=== PATIENT | male | born 1965 | race Two or more races ===

== ENCOUNTER 2023-07-17 18:37 | Emergency (ER) | payer MEDICAID, OTHER ==
[~2023-07-17] VITALS: Ht 165.1 cm; Wt 65.2 kg
[2023-07-17] MEDS ORDERED: NAP500T PO (20:46)
[2023-07-17] MEDS ORDERED: CIPR-173 PO (20:46)
[2023-07-18 00:40] VITALS: BP 142/77; PULSE 77; RESP 13; TEMP 97.1; O2SAT 99
[2023-07-18] MEDS: ceFAZolin IM 1GM/2.5ML STERILE WATER IM ONE (00:45)
[2023-07-18] MEDS: ceFAZolin 1GM VL ONE (00:49)
== END 2023-07-18 01:15 | disposition home or self-care (01) ==
LOC: ER 18:44
DX: L03.115 Cellulitis of right lower limb (principal); E11.9 Type 2 diabetes mellitus without complications; I10 Essential (primary) hypertension; E78.5 Hyperlipidemia, unspecified
CPT/HCPCS: 96372; 99283; J0690

== ENCOUNTER 2023-08-01 11:33 | Emergency (ER) | payer MEDICAID ==
[~2023-08-01] VITALS: Ht 167.6 cm; Wt 67.0 kg
[~2023-08-01 11:33] MED LIST: CIPR-173 PO; NAP500T PO
[2023-08-01 12:56] VITALS: BP 126/73; PULSE 82; RESP 16; TEMP 98; O2SAT 97
[2023-08-01] MEDS ORDERED: TRIA0.02 TOP (13:02)
== END 2023-08-01 13:15 | disposition home or self-care (01) ==
LOC: ER 11:41
DX: L23.9 Allergic contact dermatitis, unspecified cause (principal); E11.9 Type 2 diabetes mellitus without complications; E78.5 Hyperlipidemia, unspecified; I10 Essential (primary) hypertension; Z88.6 Allergy status to analgesic agent